=== PATIENT | male | born 1945 | race Two or more races ===

== ENCOUNTER 2017-08-18 09:29 | Outpatient (CLI) | payer OTHER ==
[~2017-08-18 09:29] MED LIST: ALTACE2.5 MG PO; ANALGESIC325 MG PO; PLAVIX75 MG PO; VASOTEC10 MG NGT; VASOTEC2.5 MG PO; ZOCOR20 MG PO
== END 2017-08-18 14:28 | disposition home or self-care (01) ==
LOC: SONOGRAMA 09:29
DX: K76.89 Other specified diseases of liver (principal); E04.0 Nontoxic diffuse goiter; J44.9 Chronic obstructive pulmonary disease, unspecified

== ENCOUNTER 2020-07-31 12:10 | Outpatient (CLI) | payer OTHER | END 2020-07-31 12:17 | disposition home or self-care (01) | LOC: SONOGRAMA 12:10 → MAMO-SONO 13:30 | PROVIDERS: ATTEND Internal Medicine Gastroenterology | DX: R10.13 Epigastric pain (principal) ==

== ENCOUNTER 2021-01-29 09:49 | Outpatient (CLI) | payer OTHER | END 2021-01-29 11:13 | disposition home or self-care (01) | LOC: SONOGRAMA 09:49 | PROVIDERS: ATTEND Physical Medicine & Rehabilitation | DX: M75.111 Incomplete rotator cuff tear or rupture of right shoulder, not specified as traumatic (principal) ==

== ENCOUNTER 2021-04-25 19:08 | Emergency (ER) | payer OTHER ==
[~2021-04-25] VITALS: Ht 167.6 cm; Wt 59.0 kg
== END 2021-04-26 00:31 | disposition home or self-care (01) ==
LOC: ER 19:08
DX: R00.1 Bradycardia, unspecified (principal); R42 Dizziness and giddiness

== ENCOUNTER 2021-07-24 11:12 | Outpatient (CLI) | payer OTHER | END 2021-07-24 11:13 | disposition home or self-care (01) | LOC: SONOGRAMA 11:12 | DX: D64.9 Anemia, unspecified (principal) ==

== ENCOUNTER 2022-03-11 11:31 | Outpatient (CLI) | payer OTHER | END 2022-03-11 11:43 | disposition home or self-care (01) | LOC: SONOGRAMA 11:31 | PROVIDERS: ATTEND Urology | DX: N40.1 Benign prostatic hyperplasia with lower urinary tract symptoms (principal); R39.14 Feeling of incomplete bladder emptying; R39.16 Straining to void; K40.21 Bilateral inguinal hernia, without obstruction or gangrene, recurrent; I25.84 Coronary atherosclerosis due to calcified coronary lesion; I67.89 Other cerebrovascular disease; R53.1 Weakness; R39.12 Poor urinary stream; T50.995A Adverse effect of other drugs, medicaments and biological substances, initial encounter; R73.9 Hyperglycemia, unspecified; Z80.42 Family history of malignant neoplasm of prostate ==

== ENCOUNTER 2024-12-10 09:11 | Emergency (ER) | payer OTHER ==
[~2024-12-10] VITALS: Ht 152.4 cm; Wt 61.7 kg
[2024-12-10] MEDS ORDERED: MECLIZINE HCL 25 MG TABLET PO ONE (09:30)
[2024-12-10 09:51] LABS: BASO % 0.6 % (0.1-1.2); EOS # 0.52 (0.04-0.54); EOS % 8.3 % (0.7-7.0); LYMPH # 1.51 (1.18-3.74); LYMPH % 24.0 % (19.3-53.1); MEAN PLATELET VOLUME 10.20 fl (9.4-12.4); MONO # 0.72 (0.24-0.82); MONO % 11.4 % (4.7-12.5); NEUT # 3.48 (1.56-6.13); NEUT % 55.2 % (34.0-71.1); RED CELL DISTRIBUTION WIDTH 12.9 % (11.6-14.4)
[2024-12-10 10:22] LABS: ALT/SGPT 21.0 U/L (12-78); AST/SGOT 17.0 U/L (15-37); BILIRUBIN TOTAL 0.6 mg/dL (0.3-1.2); BUN CREA RATIO 8.0 (7.0-25.0); CREATININE SERUM 1.22 mg/dL (0.70-1.30); GFR 57.01; GLOBULINA 3.1 G/DL (2.4-3.5); GLUCOSE FASTING 90.0 mg/dL (65-100); LDH 164.0 U/L (87-241); OSMOLALITY SERUM 285.0 MOSM/KG (275-295); PHOSPHOKINASE CREATININE 50.0 U/L (39-308)
[2024-12-10] MEDS ORDERED: MOTION SICKNESS25 M1 PO (11:43)
== END 2024-12-10 12:31 | disposition home or self-care (01) ==
LOC: ER 09:11
PROVIDERS: General Practice
DX: R42 Dizziness and giddiness (principal)